=== PATIENT | male | born 1945 | race Caucasian/White ===

== ENCOUNTER 2021-06-14 12:20 | Emergency (ER) | payer OTHER ==
[2021-06-14 13:33] LABS: HEMOGLOBIN 14.2 gm/dl (14.0-17.5); RED BLOOD COUNT 4.5 M/UL (4.20-5.50); WHITE BLOOD COUNT 9.8 K/UL (4.5-11.0)
[2021-06-14 13:58] LABS: BUN/CREATININE RATIO 15 (0-10)
[2021-06-14] MEDS ORDERED: HYDROCODON-ACE1 EAC4 PO (16:32)
== END 2021-06-14 16:49 | disposition home or self-care (01) ==
LOC: ER1 12:20
PROVIDERS: Emergency Medicine
DX: M25.511 Pain in right shoulder (principal); M54.2 Cervicalgia; E11.9 Type 2 diabetes mellitus without complications; I10 Essential (primary) hypertension; F17.200 Nicotine dependence, unspecified, uncomplicated; Z86.73 Personal history of transient ischemic attack (TIA), and cerebral infarction without residual deficits
CPT/HCPCS: 71045; 80053; 82550; 82553; 84484; 85025; 93005; 99284